=== PATIENT | male | born 1975 | race Caucasian/White ===

== ENCOUNTER 2020-05-29 08:44 | Emergency (ER) | payer BC ==
[2020-05-29 08:57] VITALS: RESP 18; TEMP 98.2
--- NOTE | 2020-05-29 09:58 | XR ---
EXAMINATION TYPE: XR KUB DATE OF EXAM: 05/29/2020 COMPARISON: NONE HISTORY: Constipation TECHNIQUE: One view abdominal series FINDINGS: The osseous structures are intact. The bowel gas pattern is nonspecific. Retained fecal debris throu ghout the colon. Question of faint metallic densities in the pelvis could be on the basis of previous surgery or superficial to the patient. In the pelvis correlate clinically. Lung bases are clear. IMPRESSION: 1. Nonspecific abdomen.
--- NOTE | 2020-05-29 10:22 | ED ---
Abdominal Pain HPI - General Chief Complaint: Abdominal Pain Stated Complaint: constipation Time Seen by Provider: 05/29/20 09:08 Source: patient Mode of arrival: ambulatory Limitations: no limitations - History of Present Illness Initial Comments: Patient is a 44-year-old male presenting to the emergency Department with complaints of constipation 5 days. Patient states he has a history of a small perforation when he was 21 years of age, he did have 6 inches of bowel removed. He has had no complications since that surgery. No other abdominal surgeries. Patient states he is prescribed Vioxx these for chronic pain, he took one 6 days ago and since then he has not been able to have a full bowel movement. Patient states he has attempted laxatives, stool softeners at home without success. Patient states he is able to pass gas, he is having no abdominal pain. He did have a little bit of nausea 2 days ago but none since then. No vomiting. His appetite has been low, he has been able to drink water. He denies any fever or chills. No chest pain or shortness of breath. No nausea or vomiting at this time. Patient has no further complaints at this time. - Related Data Home Medications Medication Instructions Recorded Confirmed Ibuprofen [Motrin Ib] 600 mg PO W/LUNCH PRN 05/29/20 05/29/20 Allergies Allergy/AdvReac Type Severity Reaction Status Date / Time No Known Allergies Allergy Verified 05/29/20 09:56 Review of Systems ROS Statement: Those systems with pertinent positive or pertinent negative responses have been documented in the HPI. ROS Other: All systems not noted in ROS Statement are negative. Past Medical History Additional Past Medical History / Comment(s): chronic pain History of Any Multi-Drug Resistant Organisms: None Reported Past Surgical History: Bowel Resection Additional Past Surgical History / Comment(s): multiple vocal cord surgeries Past Psychological History: No Psychological Hx Reported Smoking Status: Current every day smoker Past Alcohol Use History: None Reported Past Drug Use History: Marijuana General Exam - General Exam Comments Initial Comments: GENERAL: Patient is well-developed and well-nourished. Patient is nontoxic and in no acute distress. HEAD: Atraumatic, normocephalic. EYES: Pupils equal round and reactive to light, extraocular movements intact, sclera anicteric, conjunctiva are normal. Eyelids were unremarkable. ENT: TMs normal, nares patent, oropharynx clear without exudates. Moist mucous membranes. NECK: Normal range of motion, supple without lymphadenopathy or JVD. LUNGS: Unlabored respirations. Breath sounds clear to auscultation bilaterally and equal. No wheezes rales or rhonchi. HEART: Regular rate and rhythm without murmurs, rubs or gallops. ABDOMEN: Soft, nontender, normoactive bowel sounds. No guarding, no rebound. No masses appreciated. : Deferred MUSCULOSKELETAL: Normal extremities with adequate strength and normal range of motion, no pitting or edema. No clubbing or cyanosis. NEUROLOGICAL: Patient is alert and oriented x 3. Motor and sensory are also intact. Cranial nerves II through XII grossly intact. Symmetrical smile. Normal speech, normal gait. PSYCH: Normal mood, normal affect. SKIN: Warm, Dry, normal turgor, no rashes or lesions noted. Limitations: no limitations Course Vital Signs 05/29/20 05/29/20 08:53 12:21 Temperature 98.2 F Pulse Rate 90 62 Respiratory 18 18 Rate Blood Pressure 143/91 140/78 O2 Sat by Pulse 98 100 Oximetry Medical Decision Making - Medical Decision Making Patient is a 44-year-old male presenting with constipation for 5 days. He does have a history of bowel resection over 20 years ago due to a small perforation. He denies any abdominal pain today, no nausea or vomiting. His abdominal exam is unremarkable. I did do a KUB which showed moderate stool burden, no other acute abnormalities. Patient was administered an enema and did have a few different bowel movements here in the ER. He states he does feel better. He will go home continue to increase water intake, recommended MiraLAX daily for the next 2 weeks. He can follow-up with his regular doctor. He is in agreement with this plan of care. He stable for discharge. Return parameters were discussed with the patient he verbalizes understanding. Case discussed with Dr. Bedoya. Disposition Clinical Impression: Constipation Disposition: HOME SELF-CARE Condition: Stable Instructions (If sedation given, give patient instructions): Constipation (ED) Additional Instructions: Please return to the Emergency Department if symptoms worsen or any other concerns. Make sure to drink plenty of water. Take MiraLAX daily for the next 2 weeks. Follow up with your regular doctor. Is patient prescribed a controlled substance at d/c from ED?: No Referrals: Vince Gorman MD [Primary Care Provider] - 1-2 days
[2020-05-29 12:22] VITALS: BP 140/78; PULSE 62
== END 2020-05-29 12:21 | disposition home or self-care (01) ==
LOC: EC 08:44
DX: K59.00 Constipation, unspecified (principal); F17.200 Nicotine dependence, unspecified, uncomplicated
CPT/HCPCS: 74018; 99284

== ENCOUNTER → 2024-12-05 | Outpatient (CLI) | payer BC ==
--- NOTE | 2024-12-05 08:56 | MR ---
EXAMINATION TYPE: MR cervical spine wo/w con DATE OF EXAM: 12/05/2024 6:56 AM COMPARISON: None. CLINICAL INDICATION: Male, 49 years old with history of M54.12 REDICULOP OF CERVICAL, Neck and rt ashleigh ulder pain TECHNIQUE: Multiplanar multiecho imaging on a 3.0 [place] magnet is performed through the cervical spin e. IV Contrast: 8 mL Gadobutrol (None, if empty) FINDINGS: The craniovertebral junction is normal. Vertebral body alignment is normal. Signal throu gh the spinal cord appears normal. C7-T1: No focal disc herniation or significant disc bulge is evident. No spinal canal stenosis or n eural foraminal stenosis is present. C6-7: No focal disc herniation or significant disc bulge is evident. No spinal canal stenosis. There is some uncovertebral joint hypertrophy with moderate bilateral foraminal narrowing. C5-6: There is mild disc bulging with mild anterior thecal sac compression. No cord contact is eviden t. Uncovertebral joint hypertrophy is present with moderate bilateral foraminal narrowing.. C4-5: Disc bulge is present with mild anterior thecal sac contact. No cord contact is evident. Some s ubligamentous disc extension may be present. No spinal canal stenosis or neural foraminal stenosis is evident. C3-4: No focal disc herniation or significant disc bulge is evident. No spinal canal stenosis or carrie ral foraminal stenosis is present. C2-3: No focal disc herniation or significant disc bulge is evident. No spinal canal stenosis or carrie ral foraminal stenosis is present. Following contrast, no suspicious enhancement is evident. IMPRESSION: 1. Disc bulge with subligamentous disc herniation extension at C4-5 has mild anterior thecal sac cont acting without stenosis or cord contact. 2. Uncovertebral joint hypertrophy contributing to C5-6 C6-7 foraminal narrowing. 3. Milder disc bulging with anterior thecal sac contact C5-6 C6-7 [facility], Workstation: [facility], 12/05/2024 8:53 AM
== END | disposition home or self-care (01) ==
LOC: RADMRIMAIN 05:52
PROVIDERS: ATTEND Family Medicine
DX: M47.22 Other spondylosis with radiculopathy, cervical region (principal); M50.121 Cervical disc disorder at C4-C5 level with radiculopathy
CPT/HCPCS: 72156; A9585